=== PATIENT | female | born 1955 | race Two or more races ===

== ENCOUNTER → 2016-12-07 | Outpatient (CLI) | payer MEDICARE | END | disposition home or self-care (01) | LOC: CFH 08:00 | PROVIDERS: ATTEND Specialist | DX: R79.89 Other specified abnormal findings of blood chemistry (principal) | CPT/HCPCS: 76700 ==

== ENCOUNTER 2019-01-15 13:06 | Emergency (ER) | payer MEDICARE ==
[~2019-01-15] VITALS: Ht 149.9 cm; Wt 71.3 kg
[2019-01-15] MEDS ORDERED: MORPHINE SULFATE 4 MG/ML, 1ML IVPush PRN (14:30)
[2019-01-15] MEDS ORDERED: SODIUM CHLORIDE FLUSH 10ML SYR IVF ONE (14:30)
[2019-01-15] MEDS ORDERED: DIPH,PERTUSS(ACELL),TET VAC/PF 0.5 ML IM-VACC ONE ×2 (14:30→16:22)
[2019-01-15] MEDS ORDERED: ONDANSETRON 2MG/ML, 2ML IVPush ONE (14:30)
[2019-01-15] MEDS ORDERED: ONDANSETRON 2MG/ML, 2ML ONE (14:37)
[2019-01-15 14:38] LABS: BASOPHILS # (AUTO) 0.04 x10^3/uL (0-0.1); BASOPHILS % (AUTO) 1 % (0-1); EOSINOPHILS # (AUTO) 0.06 x10^3/uL (0-0.4); EOSINOPHILS % (AUTO) 1 % (1-7); LYMPHOCYTES # (AUTO) 3.42 x10^3/uL (1-3.4); LYMPHOCYTES % (AUTO) 45 % (22-44); MD NO; MEAN CORPUSCULAR HEMOGLOBIN 30.3 pg (27.0-34.8); MEAN CORPUSCULAR HGB CONC 33.1 g/dL (32.4-35.8); MEAN CORPUSCULAR VOLUME 91.5 fL (80-100); MEAN PLATELET VOLUME 9.6 fL (7.4-10.4); MONOCYTES # (AUTO) 0.44 x10^3/uL (0.2-0.8); MONOCYTES % (AUTO) 6 % (2-9); NEUTROPHILS % (AUTO) 48 % (42-75); PLATELET COUNT 209 x10^3/uL (130-400); RED BLOOD COUNT 4.54 x10^6/uL (3.82-5.3); RED CELL DISTRIBUTION WIDTH 14.5 % (9.6-15.2)
[2019-01-15] MEDS ORDERED: MORPHINE SULFATE 4 MG/ML, 1ML ONE (14:38)
--- NOTE | 2019-01-15 14:40 | NUR ---
PT DECLINGING PAIN MEDICATION AT THIS TIME. AWAITING IMAGING
[2019-01-15 14:50] LABS: ALANINE AMINOTRANSFERASE 90 U/L (12-78); ALBUMIN 3.9 g/dL (3.4-5.0); ANION GAP 7 mmol/L (5-15); CALCIUM 9.1 mg/dL (8.5-10.1); CHLORIDE 106 mmol/L (98-107); CREATININE 0.59 mg/dL (0.55-1.02)
--- NOTE | 2019-01-15 14:50 | NUR ---
PT BEING TAKEN FOR IMAGING NOW
[2019-01-15 14:52] LABS: ALKALINE PHOSPHATASE 113 U/L (45-117); BILIRUBIN,TOTAL 0.4 mg/dL (0.2-1.0); TOTAL PROTEIN 7.7 g/dL (6.4-8.2)
--- NOTE | 2019-01-15 15:09 | NUR ---
Report from Donald TUCKER
--- NOTE | 2019-01-15 15:18 | NUR ---
Pt in radiology still
--- NOTE | 2019-01-15 15:43 | NUR ---
Pt back from radiology, ambulated to restroom without assistance, cspine cleared, c collar removed
[2019-01-15] MEDS ORDERED: BACITRACIN ZINC OINT 500U/GM, 0.9 GM ONE (16:16)
[2019-01-15 16:37] VITALS: BP 118/64
[2019-01-15] MEDS ORDERED: OMNIPAQUE 350 MG/ML, 100ML BOTTLE ONE (18:05)
== END 2019-01-15 17:41 | disposition home or self-care (01) ==
LOC: ED 14:25
DX: S16.1XXA Strain of muscle, fascia and tendon at neck level, initial encounter (principal); S43.402A Unspecified sprain of left shoulder joint, initial encounter; S43.401A Unspecified sprain of right shoulder joint, initial encounter; S53.402A Unspecified sprain of left elbow, initial encounter; S53.401A Unspecified sprain of right elbow, initial encounter; S20.212A Contusion of left front wall of thorax, initial encounter; S80.211A Abrasion, right knee, initial encounter; E78.5 Hyperlipidemia, unspecified; E11.9 Type 2 diabetes mellitus without complications; I10 Essential (primary) hypertension; Z88.8 Allergy status to other drugs, medicaments and biological substances; W19.XXXA Unspecified fall, initial encounter; Y93.89 Activity, other specified; Y92.410 Unspecified street and highway as the place of occurrence of the external cause; Y99.8 Other external cause status
CPT/HCPCS: 36415; 72020; 72050; 73030; 73080; 73564; 74177; 80053; 83690; 85025; 90471; 90715; 99284; Q9967

== ENCOUNTER → 2019-07-06 | Outpatient (CLI) | payer MEDICARE, MEDICAID ==
[~2019-07-06] MED LIST: OMNIPAQUE 350 MG/ML, 150 ML BOTTLE ONE
== END | disposition home or self-care (01) ==
LOC: CFH 09:15
PROVIDERS: ATTEND Family Medicine
DX: R31.9 Hematuria, unspecified (principal); K76.0 Fatty (change of) liver, not elsewhere classified; M43.17 Spondylolisthesis, lumbosacral region; Z90.710 Acquired absence of both cervix and uterus
CPT/HCPCS: 74178; 82565; Q9967

== ENCOUNTER 2019-08-07 08:14 | Emergency (ER) | payer MEDICARE, MEDICAID ==
[~2019-08-07] VITALS: Ht 147.3 cm; Wt 69.3 kg
--- NOTE | 2019-08-07 09:05 | NUR ---
PT HERE WITH C/O COUGH AND NASAL CONGESTION AND PHLEGM X DAYS. PT STATES MILD CHEST DISCOMFORT WHILE COUGHING, AND ONE EPISODE OF POST-TUSSIS VOMITTING THIS MORNING. PT STATES SHE HAS TAKEN NO MEDICATION FOR THIS. PT DENIES FEVERS, SOB, AND CARDIAC CHEST PAIN. PT ALSO STATES BODY ACHES AND BACK PAIN. PT AAO X 4, NAD, ROOM AIR, CALL LIGHT WITHIN REACH. 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 MD AT BEDSIDE FOR EXAM.
[2019-08-07 09:08] VITALS: BP 140/70
[2019-08-07] MEDS ORDERED: BENZONATATE 100 MG CAPSULE ONE (09:18)
--- NOTE | 2019-08-07 09:20 | NUR ---
PT MEDICATED PER ORDER. PT TO XRAY WITH [employer].
--- NOTE | 2019-08-07 09:24 | NUR ---
PT BACK FROM XRAY.
[2019-08-07] MEDS ORDERED: BENZONATATE 100 MG CAPSULE PO ONE (09:30)
[2019-08-07 09:41] LABS: BASOPHILS # (AUTO) 0.04 x10^3/uL (0-0.1); BASOPHILS % (AUTO) 1 % (0-1); EOSINOPHILS # (AUTO) 0.05 x10^3/uL (0-0.4); EOSINOPHILS % (AUTO) 1 % (1-7); LYMPHOCYTES # (AUTO) 2.29 x10^3/uL (1-3.4); LYMPHOCYTES % (AUTO) 50 % (22-44); MD NO; MEAN CORPUSCULAR HEMOGLOBIN 30.4 pg (27.0-34.8); MEAN CORPUSCULAR HGB CONC 33.7 g/dL (32.4-35.8); MEAN CORPUSCULAR VOLUME 90.2 fL (80-100); MEAN PLATELET VOLUME 9.8 fL (7.4-10.4); MONOCYTES # (AUTO) 0.52 x10^3/uL (0.2-0.8); MONOCYTES % (AUTO) 11 % (2-9); NEUTROPHILS # (AUTO) 1.71 x10^3/uL (1.8-6.8); NEUTROPHILS % (AUTO) 37 % (42-75); PLATELET COUNT 210 x10^3/uL (130-400); RED BLOOD COUNT 4.87 x10^6/uL (3.82-5.3); RED CELL DISTRIBUTION WIDTH 13.8 % (9.6-15.2)
[2019-08-07 09:49] LABS: ALBUMIN 3.6 g/dL (3.4-5.0); ANION GAP 4 mmol/L (5-15); CHLORIDE 107 mmol/L (98-107); CREATININE 0.69 mg/dL (0.55-1.02)
--- NOTE | 2019-08-07 09:53 | NUR ---
ALL RESULTS BACK AT THIS TIME, CHART UP FOR RECHECK.
--- NOTE | 2019-08-07 10:28 | NUR ---
MEDICATION ORDERED FROM PHARMACY.
[2019-08-07] MEDS ORDERED: GUAIFENESIN/DM 200-20MG, 10ML UDC PO PRN (10:30)
--- NOTE | 2019-08-07 10:46 | NUR ---
PT MEDICATED PER ORDER.
--- NOTE | 2019-08-07 10:47 | NUR ---
Patient/Caregiver given discharge instructions and they have confirmed that they understand the instructions. Patient ambulatory with steady gait.
== END 2019-08-07 10:48 | disposition home or self-care (01) ==
LOC: ED 10:00
DX: J00 Acute nasopharyngitis [common cold] (principal); I10 Essential (primary) hypertension; E78.5 Hyperlipidemia, unspecified; E11.9 Type 2 diabetes mellitus without complications; M79.10 Myalgia, unspecified site; R11.10 Vomiting, unspecified
CPT/HCPCS: 36415; 71046; 80048; 82040; 85025; 99284

== ENCOUNTER → 2020-05-06 | Outpatient (CLI) | payer MEDICARE | END | disposition home or self-care (01) | LOC: CFH 08:00 → EDSTATUS 08:30 | PROVIDERS: ATTEND Family Medicine | DX: K90.49 Malabsorption due to intolerance, not elsewhere classified (principal) | CPT/HCPCS: 76700 ==

== ENCOUNTER 2020-05-22 10:31 | Outpatient (CLI) | payer MEDICARE | END 2020-05-22 23:59 | disposition home or self-care (01) | LOC: CFH 10:31 → EDSTATUS 11:00 → CFH 23:59 | PROVIDERS: ATTEND Family Medicine | DX: Z12.31 Encounter for screening mammogram for malignant neoplasm of breast (principal); M85.88 Other specified disorders of bone density and structure, other site; N95.8 Other specified menopausal and perimenopausal disorders | CPT/HCPCS: 77067; 77080 ==

== ENCOUNTER → 2020-08-05 | Outpatient (CLI) | payer MEDICARE | END | disposition home or self-care (01) | LOC: RAD 13:05 | PROVIDERS: ATTEND Family Medicine | DX: R10.2 Pelvic and perineal pain (principal); Z90.710 Acquired absence of both cervix and uterus | CPT/HCPCS: 76830 ==

== ENCOUNTER → 2020-09-16 | Outpatient (CLI) | payer MEDICARE ==
[2020-09-16 11:01] LABS: ALANINE AMINOTRANSFERASE 45 U/L (12-78); ALBUMIN 3.9 g/dL (3.4-5.0); CALCIUM 10.1 mg/dL (8.5-10.1); CHLORIDE 108 mmol/L (98-107); CREATININE 0.65 mg/dL (0.55-1.02)
[2020-09-16 11:03] LABS: ALKALINE PHOSPHATASE 131 U/L (45-117); BILIRUBIN,TOTAL 0.5 mg/dL (0.2-1.0); TOTAL PROTEIN 7.6 g/dL (6.4-8.2)
[2020-09-16 11:25] LABS: ANION GAP 5 mmol/L (5-15)
== END | disposition home or self-care (01) ==
LOC: STAR 08:40
PROVIDERS: ATTEND Obstetrics & Gynecology
DX: Z01.818 Encounter for other preprocedural examination (principal); R10.2 Pelvic and perineal pain; N81.10 Cystocele, unspecified; Z20.822 Contact with and (suspected) exposure to COVID-19
CPT/HCPCS: 80053; 87635; 93005

== ENCOUNTER 2020-09-20 10:10 | Day surgery (SDC) | payer MEDICARE ==
[~2020-09-20] VITALS: Ht 149.9 cm; Wt 65.9 kg
[2020-09-20] MEDS ORDERED: CHLORHEXIDINE 15 ML UDC MM STA (10:27)
[2020-09-20] MEDS ORDERED: LACTATED RINGERS 1,000 ML IV SCH (10:30)
[2020-09-20 10:49] VITALS: BP 120/76
[2020-09-20] MEDS ORDERED: AMLO-211 PO (11:20)
[2020-09-20] MEDS ORDERED: GLIM2TAB7 PO (11:20)
[2020-09-20] MEDS ORDERED: ATOR20TA37 PO (11:20)
[2020-09-20] MEDS ORDERED: DICL75TA3 PO (11:20)
[2020-09-20] MEDS ORDERED: BUPIVACAINE/PF 0.25% ONE (11:30)
[2020-09-20] MEDS ORDERED: ESTROGENS CONJUGATED VAG CRM 0.625MG/1G, 30GM ONE (11:30)
[2020-09-20] MEDS ORDERED: EPINEPHRINE 1 MG/ML, 1ML ONE (11:30)
[2020-09-20] MEDS ORDERED: MIDAZOLAM 1 MG/ML, 2ML ONE (11:59)
[2020-09-20] MEDS ORDERED: FENTANYL PF 100 MCG/2ML ONE (11:59)
[2020-09-20] MEDS ORDERED: OXYcodone 5 MG/5 ML ORAL.SOL UDC PO PRN (12:30)
[2020-09-20] MEDS ORDERED: PROMETHAZINE 25 MG/ML, 1ML IVPush PRN (12:30)
[2020-09-20] MEDS ORDERED: MEPERIDINE/PF 25MG/0.5ML IVPush PRN (12:30)
[2020-09-20] MEDS ORDERED: ONDANSETRON 2MG/ML, 2ML IVPush PRN (12:30)
[2020-09-20] MEDS ORDERED: HYDROcodone/APAP 7.5-325MG/15ML UDC PO PRN (12:30)
[2020-09-20] MEDS ORDERED: HYDROmorphone 1 MG/ML, 1ML INJ IVPush PRN (12:30)
[2020-09-20] MEDS ORDERED: FENTANYL PF 100 MCG/2ML IV PRN (12:30)
[2020-09-20] MEDS ORDERED: OXYC1TAB14 PO (14:05)
[2020-09-20] MEDS ORDERED: DOCU-131 PO (14:05)
[2020-09-20] MEDS ORDERED: IBUP-1223 PO (14:05)
== END 2020-09-20 16:00 | disposition home or self-care (01) ==
LOC: OUT 10:10
PROVIDERS: ATTEND Obstetrics & Gynecology
DX: N81.10 Cystocele, unspecified (principal); N81.6 Rectocele; N81.89 Other female genital prolapse; E11.9 Type 2 diabetes mellitus without complications; M19.90 Unspecified osteoarthritis, unspecified site; Z88.8 Allergy status to other drugs, medicaments and biological substances; Z79.899 Other long term (current) drug therapy; Z79.84 Long term (current) use of oral hypoglycemic drugs; Z79.1 Long term (current) use of non-steroidal anti-inflammatories (NSAID); Z90.710 Acquired absence of both cervix and uterus; Z98.890 Other specified postprocedural states; Z83.3 Family history of diabetes mellitus; Z82.49 Family history of ischemic heart disease and other diseases of the circulatory system
CPT/HCPCS: 57260; 82962; J0171; J2250; J3010

== ENCOUNTER → 2020-10-09 | Outpatient (CLI) | payer MEDICARE ==
[~2020-10-09] MED LIST changes: +AMLO-211 PO; +ATOR20TA37 PO; +DICL75TA3 PO; +DOCU-131 PO; +GLIM2TAB7 PO; +IBUP-1223 PO; -OMNIPAQUE 350 MG/ML, 150 ML BOTTLE ONE; +OXYC1TAB14 PO
[2020-10-09 10:47] LABS: BASOPHILS % (AUTO) 1 % (0-1); EOSINOPHILS % (AUTO) 1 % (1-7); LYMPHOCYTES % (AUTO) 44 % (22-44); MEAN CORPUSCULAR HEMOGLOBIN 30.2 pg (27.0-34.8); MEAN CORPUSCULAR HGB CONC 33.8 g/dL (32.4-35.8); MEAN PLATELET VOLUME 8.9 fL (7.4-10.4); MONOCYTES % (AUTO) 6 % (2-9); NEUTROPHILS % (AUTO) 48 % (42-75); PLATELET COUNT 246 x10^3/uL (130-400); RED BLOOD COUNT 4.64 x10^6/uL (3.82-5.3); RED CELL DISTRIBUTION WIDTH 13.7 % (9.6-15.2)
[2020-10-09 10:48] LABS: MD NO
[2020-10-09 10:53] LABS: MICROSCOPIC INDICATED
[2020-10-09 10:59] LABS: ALANINE AMINOTRANSFERASE 40 U/L (12-78); ANION GAP 7 mmol/L (5-15); CALCIUM 9.5 mg/dL (8.5-10.1); CHLORIDE 107 mmol/L (98-107); CREATININE 0.66 mg/dL (0.55-1.02)
[2020-10-09 11:01] LABS: ALKALINE PHOSPHATASE 121 U/L (45-117); BILIRUBIN,TOTAL 0.5 mg/dL (0.2-1.0); TOTAL PROTEIN 7.8 g/dL (6.4-8.2)
== END | disposition home or self-care (01) ==
LOC: CFH 09:38
PROVIDERS: ATTEND Family Medicine
DX: R10.84 Generalized abdominal pain (principal); R14.0 Abdominal distension (gaseous)
CPT/HCPCS: 36415; 74018; 80053; 81001; 83690; 85025

== ENCOUNTER → 2021-02-19 | Outpatient (CLI) | payer MEDICARE | END | disposition home or self-care (01) | LOC: RAD 09:18 | PROVIDERS: ATTEND Family Medicine | DX: M79.661 Pain in right lower leg (principal); M79.662 Pain in left lower leg; R60.9 Edema, unspecified | CPT/HCPCS: 93970 ==

== ENCOUNTER → 2021-03-19 | Outpatient (CLI) | payer MEDICARE | END | disposition home or self-care (01) | LOC: RAD 12:05 | PROVIDERS: ATTEND Family Medicine | DX: M25.572 Pain in left ankle and joints of left foot (principal) ==

== ENCOUNTER 2021-04-16 15:48 | Outpatient (CLI) | payer MEDICARE ==
[~2021-04-16 15:48] MED LIST changes: +OXYC1TAB12 PO; -OXYC1TAB14 PO
== END 2021-04-16 23:59 | disposition home or self-care (01) ==
LOC: RAD 15:48
PROVIDERS: ATTEND Family Medicine
DX: M72.2 Plantar fascial fibromatosis (principal); M79.672 Pain in left foot